=== PATIENT | male | born 1965 | race African-American/Black ===

== ENCOUNTER 2017-07-04 11:53 | Emergency (ER) | payer OTHER, SELFPAY ==
[2017-07-04] MEDS ORDERED: Cephalexin 250 MG CAP ONE (13:09)
[2017-07-04] MEDS ORDERED: Lidocaine 1% (PF) 30 ML VIAL ONE (13:09)
[2017-07-04] MEDS ORDERED: Sulfameth/Trimethoprim DS 800-160mg TAB ONE (13:09)
== END 2017-07-04 14:02 | disposition home or self-care (01) ==
LOC: ERS 11:53
DX: L02.416 Cutaneous abscess of left lower limb (principal); I10 Essential (primary) hypertension; K21.9 Gastro-esophageal reflux disease without esophagitis; F17.210 Nicotine dependence, cigarettes, uncomplicated
CPT/HCPCS: 10160; J2001

== ENCOUNTER 2017-09-28 12:12 | Emergency (ER) | payer SELFPAY ==
--- NOTE | 2017-09-28 13:39 | RAD ---
LEFT SHOULDER 3 VIEWS: HISTORY: Injury. FINDINGS: There is slight widening of the AC joint and slight superior positioning of the clavicle. Findings a re consistent with an AC separation. No fracture or dislocation seen. IMPRESSION: Evidence of acromioclavicular separation. POS: [facility]
[2017-09-28] MEDS ORDERED: Ketorolac Tromethamine 30 MG/ML VIAL ONE (13:44)
== END 2017-09-28 14:14 | disposition home or self-care (01) ==
LOC: ERS 12:12
DX: S43.102A Unspecified dislocation of left acromioclavicular joint, initial encounter (principal); I10 Essential (primary) hypertension; K21.9 Gastro-esophageal reflux disease without esophagitis; F17.210 Nicotine dependence, cigarettes, uncomplicated; V43.52XA Car driver injured in collision with other type car in traffic accident, initial encounter
CPT/HCPCS: 96372; J1885

== ENCOUNTER 2017-10-07 13:30 | Emergency (ER) | payer SELFPAY | END 2017-10-07 15:20 | disposition home or self-care (01) | LOC: ERS 13:30 | DX: M25.512 Pain in left shoulder (principal); I10 Essential (primary) hypertension; K21.9 Gastro-esophageal reflux disease without esophagitis; Z87.891 Personal history of nicotine dependence | CPT/HCPCS: 99281 ==